=== PATIENT | male | born 2000 | race Caucasian/White ===

== ENCOUNTER 2023-10-17 11:45 | Emergency (ER) | payer OTHER, SELFPAY ==
[2023-10-17] MEDS ORDERED: FAMOTIDINE 20 MG/2 ML VIAL IV ONE (12:22)
[2023-10-17] MEDS ORDERED: NA CHLORIDE 0.9% 1,000 ML ONE (12:22)
[2023-10-17] MEDS ORDERED: ONDANSETRON 4 MG/2 ML VIAL ONE ×2 (12:22→15:52)
[2023-10-17 12:25] LABS: Absolute Eosinophils 0.3 K/uL (0-0.5); Absolute Lymphocytes (CBC) 0.6 K/uL (0.7-4.9); Absolute Monocytes 0.7 K/uL (0.1-1.3); Absolute Neutrophil 10.8 K/uL (1.8-8.0); Basophils % 0.1 % (0-1.3); Eosinophils % 2.7 % (0-4.4); Hematocrit 50.2 % (39.6-49.0); Hemoglobin 16.3 g/dL (13.6-17.9); Lymphocytes % 5.2 % (15.3-44.8); MCH 27.1 pg (27.0-35.0); MCHC 32.4 g/dL (32.0-36.0); MCV 83.5 fL (80-100); MPV 8.2 fL (7.6-11.3); Monocytes % 5.9 % (3.3-12.3); Neutrophils % 86.1 % (41.7-73.7); Nucleated Red Blood Cells % 0.3 % (0-0); Platelets 253 thou/uL (152-406); RBC Red Blood Cell Count 6.02 M/uL (4.33-5.43); Red Cell Distribution Width 13.9 % (12.1-15.2)
--- NOTE | 2023-10-17 12:55 | RAD REPORT ---
EXAM DESCRIPTION: CT - Abdomen Pelvis W Contrast - 10/17/2023 12:29 pm CLINICAL HISTORY: ABD PAIN COMPARISON: No comparisons TECHNIQUE: Thin cut axial CT imaging of the abdomen and pelvis was performed following intravenous a dministration of iodinated contrast. Multiplanar reformats were generated and reviewed. All CT scans are performed using dose optimization technique as appropriate and may include automated exposure control or mA/KV adjustment according to patient size. FINDINGS: No suspicious findings in the lung bases. The liver, spleen, adrenal glands, and pancreas show no suspicious findings. Gallbladder and biliary tree are also without suspicious finding. Symmetric renal function is seen with no hydronephrosis or suspicious renal mass. No dilated bowel loops or bowel wall thickening. No free air, free fluid or inflammatory stranding. N o hernia, mass or bulky lymphadenopathy. The urinary bladder is without significant finding. No suspicious bony findings. IMPRESSION: No acute intra-abdominal process.
[2023-10-17 13:06] LABS: Blood Morphology Comment NOT SEEN (NOT SEEN); Platelet Estimate ADEQ; White Blood Cell Scan OK (OK)
[2023-10-17 15:39] LABS: Albumin 3.6 g/dL (3.4-5.0); Albumin/Globulin Ratio 1.1 (1.1-1.8); Anion Gap 6.9 mEq/L (5.0-15.0); Bilirubin Total 0.6 mg/dL (0.2-1.0); Globulin 3.3 g/dL (2.3-3.5); Potassium 3.9 mEq/L (3.5-5.1); Protein, Total 6.9 g/dL (6.4-8.2)
[2023-10-17] MEDS ORDERED: DICYCLOMINE HCL 10 MG CAP ONE (15:45)
[2023-10-17] MEDS ORDERED: MAGNES/ALUMIN/SIMET 30ML UCUP ONE (15:45)
[2023-10-17] MEDS ORDERED: LIDOCAINE VISCOUS 2% 10ML ORAL SOLN ONE (15:46)
[2023-10-17] MEDS ORDERED: KETOROLAC 30 MG/ML INJ ONE (15:46)
--- NOTE | 2023-10-17 16:46 | ER ---
Nurse's Notes [facility] Name: Kenneth Mckinney Age: 23 yrs Sex: Male : 2000 Arrival Date: 10/17/2023 Time: 11:45 Bed 11 Private MD: Diagnosis: Noninfective gastroenteritis and colitis, unspecified Presentation: 10/16 12:04 Chief complaint: Patient states: "I've had N/V since 4am and stomach pain everywhere.". 9 Coronavirus screen: Vaccine status: Patient reports being unvaccinated. Ebola Screen: No symptoms or risks identified at this time. Initial Sepsis Screen: Does the patient meet any 2 criteria? No. Patient's initial sepsis screen is negative. Does the patient have a suspected source of infection? No. Patient's initial sepsis screen is negative. Risk Assessment: Do you want to hurt yourself or someone else? Patient reports no desire to harm self or others. Onset of symptoms was October 17, 2023. 12:04 Method Of Arrival: Ambulatory [facility] 12:04 Acuity: SHAMIR 3 mb9 Triage Assessment: 12:06 General: Appears uncomfortable, Behavior is cooperative. Pain: Complains of pain in mb9 abdomen Pain does not radiate. Quality of pain is described as throbbing, Pain began 1 day ago. EENT: No signs and/or symptoms were reported regarding the EENT system. Neuro: Diaz Agitation-Sedation Scale (RASS): 0 - Alert and Calm Level of Consciousness is awake, alert, obeys commands. Cardiovascular: Patient's skin is warm and dry. Respiratory: Airway is patent Respiratory effort is even, unlabored, Respiratory pattern is regular, symmetrical. GI: Abdomen is flat, non-distended, Pt is actively vomiting Abd is soft and non tender X 4 quads. Reports nausea. : No signs and/or symptoms were reported regarding the genitourinary system. Derm: Skin is pink, warm \\T\\ dry. Musculoskeletal: Range of motion: intact in all extremities. Historical: - Allergies: 12:05 No Known Allergies; mb9 - Home Meds: 12:05 None [Active]; mb9 - PMHx: 12:05 None; mb9 - PSHx: 12:05 None; mb9 - Immunization history:: Adult Immunizations up to date. - Infectious Disease History:: Denies. - Social history:: Smoking status: Reported history of juuling and/or vaping. Screenin:38 [facility] ED Fall Risk Assessment (Adult) History of falling in the last 3 months, kc6 including since admission No falls in past 3 months (0 pts) Confusion or Disorientation No (0 pts) Intoxicated or Sedated No (0 pts) Impaired Gait No (0 pts) Mobility Assist Device Used No (0 pt) Altered Elimination No (0 pt) Score/Fall Risk Level 0 - 2 = Low Risk. Abuse screen: Denies threats or abuse. Denies injuries from another. Nutritional screening: No deficits noted. Tuberculosis screening: No symptoms or risk factors identified. Assessment: 14:39 General: Appears in no apparent distress. well groomed, well developed, Behavior is kc6 calm, cooperative, appropriate for age. Pain: Complains of pain in abdomen diffusely. Neuro: Level of Consciousness is awake, alert, obeys commands, Oriented to person, place, time, situation, Appropriate for age. Cardiovascular: Capillary refill < 3 seconds. Respiratory: Airway is patent Trachea midline Respiratory effort is even, unlabored, Respiratory pattern is regular, symmetrical. GI: Abdomen is flat, non-distended, Bowel sounds present X 4 quads. Abdomen is tender to palpation X 4 quads. Reports lower abdominal pain, upper abdominal pain, nausea, vomiting, Patient currently denies diarrhea. : No signs and/or symptoms were reported regarding the genitourinary system. EENT: No signs and/or symptoms were reported regarding the EENT system. Derm: No signs and/or symptoms reported regarding the dermatologic system. Skin is intact, is healthy with good turgor, Skin is pink, warm \\T\\ dry. Musculoskeletal: No signs and/or symptoms reported regarding the musculoskeletal system. Circulation, motion, and sensation intact. Capillary refill < 3 seconds, Range of motion: intact in all extremities. 15:07 Reassessment: SPOKE WITH OUTSIDE LAB REGARDING PENDING LABS. THEY STATE THE CMP AND kc6 LIPASE WERE NEVER RECEIVED BUT WILL CALL BACK AND LET US KNOW. 15:15 Reassessment: LAB RECOLLECTED AND SENT AT THIS TIME. kc6 15:23 Reassessment: Patient appears in no apparent distress at this time. No changes from kc6 previously documented assessment. Patient and/or family updated on plan of care and expected duration. Pain level reassessed. Patient is alert, oriented x 3, equal unlabored respirations, skin warm/dry/pink. Patient states symptoms have not improved. 17:08 Reassessment: Patient appears in no apparent distress at this time. No changes from kc6 previously documented assessment. Patient and/or family updated on plan of care and expected duration. Pain level reassessed. Patient is alert, oriented x 3, equal unlabored respirations, skin warm/dry/pink. Patient states feeling better. Patient states symptoms have improved. Vital Signs: 12:04 BP 129 / 78; Pulse 90; Resp 18; Temp 98.2(O); Pulse Ox 98% on R/A; Weight 81.65 kg; mb9 Height 6 ft. 0 in. ; 14:57 BP 122 / 70; Pulse 69; Resp 18 S; Pulse Ox 97% on R/A; kc6 17:08 BP 117 / 70; Pulse 59; Resp 18 S; Pulse Ox 99% on R/A; kc6 12:04 Body Mass Index 24.41 (81.65 kg, 182.88 cm) [facility] ED Course: 11:47 Patient arrived in ED. im 11:56 Silverio Yi MD is Attending Physician. ec2 12:04 Arm band placed on. 9 12:05 Triage completed. [facility] 12:13 Initial lab(s) drawn, by me, sent to lab. Inserted saline lock: 20 gauge in right mb9 antecubital area, using aseptic technique. 12:15 CBC with Diff Sent. bc6 12:15 CMP Sent. bc6 12:15 Lipase Sent. 6 12:30 CT Abd/Pelvis - IV Contrast Only In Process Unspecified. EDMS 14:16 Yuliet Agee, RN is Primary Nurse. kc6 14:39 Patient has correct armband on for positive identification. Bed in low position. Call kc light in reach. Side rails up X 1. Adult w/ patient. Pulse ox on. NIBP on. Pillow given. 16:45 Saulo Garcia MD is Referral Physician. ec2 17:08 No provider procedures requiring assistance completed. IV discontinued, intact, kc6 bleeding controlled, No redness/swelling at site. Pressure dressing applied. Administered Medications: 13:12 Drug: NS 0.9% IV 1000 ml IV at 1 bolus Per protocol; 1000 mL bolus Route: IV; Rate: 1 as6 bolus; Site: right antecubital; 14:58 Follow up: Response: No adverse reaction; IV Status: Completed infusion; IV Intake: kc6 1000ml 13:12 Drug: Famotidine IVP 20 mg IVP once; dilute with 10 mL 0.9% NaCl; give over 2 minutes as6 Route: IVP; Site: right antecubital; 14:58 Follow up: Response: No adverse reaction kc6 13:12 Drug: Ondansetron IVP 4 mg IVP once; over 2 minutes Route: IVP; Site: right antecubital;as6 14:58 Follow up: Response: No adverse reaction kc6 16:00 Drug: Ketorolac IVP 15 mg IVP once Route: IVP; Site: right antecubital; kc6 17:07 Follow up: Response: No adverse reaction; Pain is decreased kc6 16:00 Drug: GI Cocktail without - (Maalox PO 30 ml, Lidocaine Mucous Membrane 2 % 15 kc6 ml) PO once Route: PO; 17:07 Follow up: Response: No adverse reaction kc6 16:00 Drug: Dicyclomine PO 10 mg PO once Route: PO; kc6 17:07 Follow up: Response: No adverse reaction kc6 16:00 Drug: Ondansetron IVP 4 mg IVP once; over 2 minutes Route: IVP; Site: right antecubital;kc6 17:07 Follow up: Response: No adverse reaction; Nausea is decreased; Vomiting decreased kc6 Medication: 17:08 VIS not applicable for this client. kc6 Intake: 14:58 IV: 1000ml; Total: 1000ml. kc6 Outcome: 16:45 Discharge ordered by . ec2 17:08 Discharged to home ambulatory, with significant other, kc6 17:08 Condition: good 17:08 Discharge instructions given to patient, significant other, Instructed on discharge instructions, follow up and referral plans. medication usage, Demonstrated understanding of instructions, follow-up care, medications, Prescriptions given X 2, 17:08 Patient left the ED. kc6 Signatures: Dispatcher [facility] Chema Webb RN RN as6 Yuliet Agee RN RN [email or web address] Mercedes Amezquita RN RN mb9 Mikaela Ledezma bc6 Jerri Alvarenga Edwin, MD STEWARD ec2
--- NOTE | 2023-10-17 16:47 | EDPHYS ---
Physician Documentation [facility] Name: Kenneth Mckinney Age: 23 yrs Sex: Male : 2000 Arrival Date: 10/17/2023 Time: 11:45 Bed 11 Private MD: ED Physician Silverio Yi HPI: 10/16 12:14 This 23 yrs old Male presents to ER via Ambulatory with complaints of ec2 Vomiting. 12:14 Patient arrives today for evaluation of 1 day of nausea and vomiting. Patient reports ec2 that he has been having issues with vomiting and not being able to keep p.o. down. Patient reports no diarrheal symptoms. Does report 1 week of cough and cold symptoms. Denies any urinary complaints. No previous abdominal surgeries. Patient reports some upper abdominal pain. Historical: - Allergies: 12:05 No Known Allergies; mb9 - Home Meds: 12:05 None [Active]; mb9 - PMHx: 12:05 None; mb9 - PSHx: 12:05 None; mb9 - Immunization history:: Adult Immunizations up to date. - Infectious Disease History:: Denies. - Social history:: Smoking status: Reported history of juuling and/or vaping. ROS: 12:14 Constitutional: as per hpi ec2 Exam: 12:14 Constitutional: GEN: NAD Head: atraumatic Eyes: EOMI Ears: External ears are ec2 normal. CV: regular rate LUNGS: no respiratory distress ABD: non-distended, soft, tender in the epigastrium, no guarding, not rigid. SKIN: no evidence of rashes MSK: no evidence of trauma NEURO: moves all extremities equally Vital Signs: 12:04 BP 129 / 78; Pulse 90; Resp 18; Temp 98.2(O); Pulse Ox 98% on R/A; Weight 81.65 kg; mb9 Height 6 ft. 0 in. ; 14:57 BP 122 / 70; Pulse 69; Resp 18 S; Pulse Ox 97% on R/A; kc6 17:08 BP 117 / 70; Pulse 59; Resp 18 S; Pulse Ox 99% on R/A; kc6 12:04 Body Mass Index 24.41 (81.65 kg, 182.88 cm) mb9 MDM: 12:09 Patient medically screened. ec2 12:14 Data reviewed: vital signs. ED course: Patient arrives today for evaluation of upper ec2 abdominal pain along with nausea and vomiting. Examination remarkable for abdominal findings as above. Will obtain lab work, CT imaging and treat the patient's symptoms. Differential diagnosis includes gastroenteritis, appendicitis, cholecystitis.. 13:25 ED course: CBC shows slight leukocytosis of 12.6. CT abdomen pelvis shows no acute ec2 intra-abdominal process. . 16:04 ED course: Metabolic profile with appropriate electrolytes and renal function. Lipase ec2 within normal ranges. Ultimately suspect gastritis, possible gastroenteritis. . 16:04 ED course: MDM: Differential diagnosis as documented above in ED course; All lab tests ec2 ordered and reviewed as documented above; History gathered from independent historian: Yes, also significant other; . 10/16 12:14 Order name: CBC with Diff; Complete Time: 13:25 ec2 / 12:14 Order name: CMP; Complete Time: 16:04 ec2 / 12:14 Order name: Lipase; Complete Time: 16:04 ec2 10/16 12:29 Order name: CBC Smear Scan; Complete Time: 13:25 EDMS 10/16 12:14 Order name: CT Abd/Pelvis - IV Contrast Only; Complete Time: 13:25 ec2 10/16 12:14 Order name: IV Saline Lock; Complete Time: 12:14 ec2 10/16 12:14 Order name: Labs collected and sent; Complete Time: 12:14 ec2 /04 14:59 Order name: Misc. Order: labs?; Complete Time: 15:15 ec2 Administered Medications: 13:12 Drug: NS 0.9% IV 1000 ml IV at 1 bolus Per protocol; 1000 mL bolus Route: IV; Rate: 1 as6 bolus; Site: right antecubital; 14:58 Follow up: Response: No adverse reaction; IV Status: Completed infusion; IV Intake: kc6 1000ml 13:12 Drug: Famotidine IVP 20 mg IVP once; dilute with 10 mL 0.9% NaCl; give over 2 minutes as6 Route: IVP; Site: right antecubital; 14:58 Follow up: Response: No adverse reaction kc6 13:12 Drug: Ondansetron IVP 4 mg IVP once; over 2 minutes Route: IVP; Site: right antecubital;as6 14:58 Follow up: Response: No adverse reaction kc6 16:00 Drug: Ketorolac IVP 15 mg IVP once Route: IVP; Site: right antecubital; kc6 17:07 Follow up: Response: No adverse reaction; Pain is decreased kc6 16:00 Drug: GI Cocktail without - (Maalox PO 30 ml, Lidocaine Mucous Membrane 2 % 15 kc6 ml) PO once Route: PO; 17:07 Follow up: Response: No adverse reaction kc6 16:00 Drug: Dicyclomine PO 10 mg PO once Route: PO; kc6 17:07 Follow up: Response: No adverse reaction kc6 16:00 Drug: Ondansetron IVP 4 mg IVP once; over 2 minutes Route: IVP; Site: right antecubital;kc6 17:07 Follow up: Response: No adverse reaction; Nausea is decreased; Vomiting decreased kc6 Disposition Summary: 10/17/23 16:45 Discharge Ordered Notes: Location: Home ec2 Condition: Stable ec2 Diagnosis - Noninfective gastroenteritis and colitis, unspecified ec2 Followup: ec2 - With: Private Physician - When: - Reason: Re-evaluation by your physician Followup: ec2 - With: Saulo Garcia MD - When: - Reason: Recheck today's complaints Discharge Instructions: - Discharge Summary Sheet ec2 - Viral Gastroenteritis, Adult, [id number] ec2 Forms: - Medication Reconciliation Form ec2 - Antibiotic Education ec2 - Prescription Opioid Use ec2 - Patient Portal Instructions ec2 - Leadership Thank You Letter ec2 Prescriptions: - Zofran 4 mg Oral Tablet - take 1 tablet ORAL route every 12 hours As needed; 20 tablet; Refills: 0, ec2 Product Selection Permitted - Pepcid 20 mg Oral Tablet - take 1 tablet ORAL route once daily; 20 tablet; Refills: 0, Product Selection ec2 Permitted Signatures: Dispatcher [employer] Chema Webb RN RN as6 Yuliet Agee RN RN kc6 Mercedes Amezquita RN RN mb9 Silverio Yi MD MD ec2
[2023-10-17 18:09] VITALS: BP 117/70; TEMP 98.2; O2SAT 99
== END 2023-10-17 17:08 | disposition home or self-care (01) ==
LOC: ER 11:45
DX: K52.9 Noninfective gastroenteritis and colitis, unspecified (principal)
CPT/HCPCS: 36415; 74177; 80053; 83690; 85025; 96361; 96374; 96375; 99284; J2405; J7030; Q9967